=== PATIENT | male | born 1955 | race Caucasian/White ===

== ENCOUNTER → 2017-09-01 | Outpatient (REF) | payer OTHER ==
[2017-09-01 12:36] LABS: C REACTIVE PROTEIN QUANTITATIV < 0.30 MG/DL (0.00-0.30)
[2017-09-01 12:36] LABS: RHEUMATOID FACTOR QUANT < 10.0 IU/ML (0-15.0)
== END ==
LOC: M LAB REF 11:54
DX: M13.0 Polyarthritis, unspecified (principal)

== ENCOUNTER 2019-01-10 07:38 | Day surgery (SDC) | payer BC, OTHER ==
[~2019-01-10] VITALS: Ht 180.3 cm; Wt 131.0 kg
[~2019-01-10 07:38] MED LIST: DIPH25CA PO; LISI-672 PO; METF750T PO; NS 1,000 ML IV ONE; VICO5TAB17 PO
--- NOTE | 2019-01-10 09:20 | ROOR ---
Patient Name: Phoenix Alvarado Procedure Date: 01/10/2019 8:11 AM Date of : 1955 Age: 63 Room: [facility] Gender: Male Note Status: Finalized Procedure: Total Colonoscopy to Cecum Indications: Screening for colorectal malignant neoplasm, Last colonoscopy: 2008 Providers: Last Tello MD Referring MD: MELQUIADES LICONA JR, MD Requesting Provider: Medicines: Monitored Anesthesia Care Complications: No immediate complications. Procedure: Pre-Anesthesia Assessment: - The heart rate, respiratory rate, oxygen saturations, blood pressure, adequacy of pulmonary ventilation, and response to care were monitored throughout the procedure. The Colonoscope was introduced through the anus and advanced to the cecum, identified by appendiceal orifice and ileocecal valve. The colonoscopy was performed without difficulty. The patient tolerated the procedure well. The quality of the bowel preparation was excellent. Findings: The perianal and digital rectal examinations were normal. Non-bleeding internal hemorrhoids were found during retroflexion. The hemorrhoids were small and Grade I (internal hemorrhoids that do not prolapse). No other significant abnormalities were identified in a careful examination of the remainder of the colon. The exam was otherwise without abnormality on direct and retroflexion views. Impression: - Non-bleeding internal hemorrhoids. - The examination was otherwise normal on direct and retroflexion views. - No specimens collected. - The exam was otherwise normal to the cecum. Recommendation: - Patient has a contact number available for emergencies. The signs and symptoms of potential delayed complications were discussed with the patient. Return to normal activities tomorrow. Written discharge instructions were provided to the patient. - High fiber diet. - Discharge patient to home. - Continue present medications. - Repeat colonoscopy in 10 years for screening purposes. - Return to referring physician. - The findings and recommendations were discussed with the patient's family. Last Tello MD Last Tello MD 01/10/2019 9:20:06 AM Electronically signed by Last Tello MD Number of Addenda: 0 Note Initiated On: 01/10/2019 8:11 AM Estimated Blood Loss: Estimated blood loss: none.
[2019-01-10] MEDS ORDERED: PROPOFOL 200 MG/20 ML VIAL As Ordered ONE (09:26)
[2019-01-10 09:45] VITALS: BP 172/99
== END 2019-01-10 09:53 | disposition home or self-care (01) ==
LOC: M OPP 07:38
PROVIDERS: ATTEND Internal Medicine Gastroenterology
DX: Z12.11 Encounter for screening for malignant neoplasm of colon (principal); K64.0 First degree hemorrhoids; Z79.84 Long term (current) use of oral hypoglycemic drugs; Z79.899 Other long term (current) drug therapy; Z87.891 Personal history of nicotine dependence

== ENCOUNTER → 2023-05-26 | Outpatient (CLI) | payer BC, OTHER, MEDICARE ==
[~2023-05-26] MED LIST changes: +DIPH-435 PO; -DIPH25CA PO; -LISI-672 PO; +LISI30TA4 PO; -METF750T PO; +METF750T36 PO; -NS 1,000 ML IV ONE
== END ==
LOC: M RAD 12:20
PROVIDERS: ATTEND Surgery Vascular Surgery
DX: I87.303 Chronic venous hypertension (idiopathic) without complications of bilateral lower extremity (principal)

== ENCOUNTER → 2024-02-11 | Outpatient (CLI) | payer MEDICARE, OTHER | LOC: M OUTALCOH 07:26 | PROVIDERS: ATTEND Psychiatry & Neurology Psychiatry | DX: F10.10 Alcohol abuse, uncomplicated (principal); F15.20 Other stimulant dependence, uncomplicated ==

== ENCOUNTER 2024-02-29 16:00 | Outpatient (RCR) | payer MEDICARE, OTHER | END 2024-03-01 | LOC: M OUTALCOH 16:00 | PROVIDERS: ATTEND Psychiatry & Neurology Psychiatry | DX: F10.10 Alcohol abuse, uncomplicated (principal); F15.20 Other stimulant dependence, uncomplicated ==

== ENCOUNTER 2024-03-28 16:00 | Outpatient (RCR) | payer MEDICARE, OTHER | END 2024-04-01 | LOC: M OUTALCOH 16:00 | PROVIDERS: ATTEND Psychiatry & Neurology Psychiatry | DX: F10.10 Alcohol abuse, uncomplicated (principal); F15.20 Other stimulant dependence, uncomplicated ==

== ENCOUNTER → 2024-05-01 | Outpatient (RCR) | payer MEDICARE, OTHER | LOC: M OUTALCOH 04-04 16:00 | PROVIDERS: ATTEND Psychiatry & Neurology Psychiatry | DX: F10.10 Alcohol abuse, uncomplicated (principal); F15.20 Other stimulant dependence, uncomplicated ==

== ENCOUNTER 2024-05-29 10:00 | Outpatient (RCR) | payer MEDICARE, OTHER | END 2024-06-01 | LOC: M OUTALCOH 10:00 | PROVIDERS: ATTEND Psychiatry & Neurology Psychiatry | DX: F10.10 Alcohol abuse, uncomplicated (principal); F15.20 Other stimulant dependence, uncomplicated ==